=== PATIENT | female | born 2000 ===

== ENCOUNTER 2024-08-14 16:16 | Outpatient (REF) | payer MEDICAID, SELFPAY ==
[2024-08-14 18:22] LABS: Cholesterol 185 mg/dL (<200); HDL Cholesterol 35 mg/dL (>40); LDL Cholesterol Calculated 88 mg/dL (<100); Triglycerides 311 mg/dL (<150)
[2024-08-14 18:37] LABS: TSH reflex Free T4 2.74 uIU/mL (0.32-4.0)
[2024-08-15 04:08] LABS: Syphilis Screen Nonreactive (Nonreactive)
[2024-08-15 04:32] LABS: HIV AB/AG Nonreactive (Nonreactive); HIV Num 1 0.05 S/CO (0.00-0.99)
[2024-08-15 09:16] LABS: CT PCR DETECTED (Not Detect.); NG PCR NOT DETECTED (Not Detect.)
[2024-08-18 18:23] LABS: Testosterone, Total 40 ng/dL (2-45)
== END 2024-08-14 16:17 | disposition home or self-care (01) ==
LOC: HO.HHCL 16:16
PROVIDERS: Visit Provider Family Medicine
DX: N93.9 Abnormal uterine and vaginal bleeding, unspecified (principal); A64 Unspecified sexually transmitted disease; R10.2 Pelvic and perineal pain; Z87.42 Personal history of other diseases of the female genital tract; E78.5 Hyperlipidemia, unspecified
CPT/HCPCS: 36415; 80061; 84403; 84443; 86780; 87389; 87491; 87591

== ENCOUNTER 2024-08-26 15:22 | Outpatient (REF) | payer MEDICAID, OTHER, SELFPAY ==
--- NOTE | ~2024-08-26 | US_ITS ---
EXAMINATION: US PELVIS CLINICAL INFORMATION: Abnormal bleeding and pelvic pain COMPARISON: None available. TECHNIQUE: Ultrasound of the pelvis is performed using both transabdominal and transvaginal transducers along with Doppler. Transvaginal imaging is performed due to inadequate visualization transabdominally. FINDINGS: Uterus: The uterus is retroverted, retroflexed and measures 7.2 x 3.9 x 4.3 cm. It has an arcuate appearance. The double wall endometrial thickness is 13 mm. The endometrium is thickened and heterogeneous The uterus is smooth in contour and has normal myometrial echogenicity. No visible fibroid. There are small nabothian cysts seen in the cervix. Adnexa: Both ovaries are visualized. There is normal color flow to the adnexa. There is no ovarian torsion. There is no pelvic ascites or fluid collection. Right ovary measures 3.5 x 1.4 x 1.9 cm. Volume 4.9 mL. Small echogenic calcifications are visualized. Left ovary measures 2.9 x 1.2 x 1.8 cm cm. Volume 3.3 mL. There is anechoic tubular structure seen adjacent to right ovary suspicious for hydrosalpinx. . There is a small amount of free fluid in the cul-de-sac. US/US pelvic and transvaginal IMPRESSION: Suspect small right hydrosalpinx adjacent to right ovary. Heterogeneous and thickened endometrium but no focal lesion. Uterus is otherwise unremarkable. Small nabothian cysts in the cervix. Ovaries are grossly unremarkable. Minimal free fluid in the cul-de-sac. Electronically signed by: Brian Allen MD 08/26/2024 04:58 PM [facility]
--- OUTSIDE RECORDS SUMMARY | 2024-08-26 16:21 | XMS_ITS | Encounter Summary ---
Author Organization [employer] [facility] Address [address] [place] [address] 7 [place] [address] Care Team Providers Care Fruit Sorter Name Role Phone Mare Mclaughlin MD Primary Care Provider +1- [phone] Encounter Details Date Type Department Care Team (Late st Contact Info) Description 08/15/2024 Orders Only [facility] MED[facility] [address] [place] [address] [phone] Mare Mclaughlin MD [address] [place] [address] [phone] Positive Chlamydia PCR (Primary Dx) Social History Tobacco Use Types Packs/Day Years Used Date Smoking Tobacco: Never Passive Smoke Exposure: Never Smokeless Tobacco: Never Comments Unknown Sex and Gender Information Value Date Recorded Sex Assigned at Female 02/12/2024 6:41 PM EDT Legal Sex Female 2:38 PM EST Gender Identity Female 02/12/2024 6:41 PM EDT Sexual Orientation Straight 02/12/2024 6: 54 PM EDT documented as of this encounter Plan of Treatment Upcoming Encounters Date Type Department Care Team (Late st Contact Info) Description 10/03/2024 9:30 AM EST Procedure Visit [facility] [address] [place] [phone] Mare Mclaughlin MD [address] [place] [address] [phone] documented as of this encounter Visit Diagnoses Diagnosis Positive Chlamydia PCR- Primary documented in this encounter Care Teams Fruit Sorter Relationship Specialty Start Date End Date Mare Mclaughlin MD [address] [place] [address] [phone] PCP - General Family Medicine 08/14/24 documented as of this encounter
--- OUTSIDE RECORDS SUMMARY | 2024-08-26 16:21 | XMS_ITS | Encounter Summary ---
Author Organization [employer] [facility] Address [address] [place] [address] 7 [place] [address] Care Team Providers Care Motion Picture Director Name Role Phone Mare Mclaughlin MD Primary Care Provider [phone]- [phone] Encounter Details Date Type Department Care Team (Latest Contact Info) Description 08/14/2024 Travel Social History Tobacco Use Types Packs/Day Years [...] Description 10/03/2024 9:30 AM EST Procedure Visit [facility]INE [address] [place] [address] Mare Mclaughlin MD [address] [place] [address] documented as of this encounter Visit Diagnoses Not on filedocumented in this encounter Care Teams Motion Picture Director Relationship Specialty Start Date End Date Mare Mclaughlin MD [address] [place], [place] [phone] PCP - General Family Medicine 08/14/24 documented as of this encounter
--- OUTSIDE RECORDS SUMMARY | 2024-08-26 16:21 | XMS_ITS | Encounter Summary ---
Author Organization [employer] [facility] Address [address] [place] [address] [address] [place] [address] Care Team Providers Care Lens Examiner Name Role Phone Mare Mclaughlin MD Primary Care Provider [phone]- [phone] Reason for Referral * Imaging (Routine) - Authorized Specialty Diagnoses / Procedures Referred By Contac t Referred To Contact Radiology Diagnoses Abnormal uterine bleeding Procedures Us Pelvis complete Mare Mclaughlin MD [address] [place] [phone] Phone: tel: fax: [address] Phone: tel: fax: Referral ID Status Reason Start Date Expiration Date V isits Requested Visits Authorized [id number] Authorized 08/14/2024 08/14/2025 1 1 * Imaging (Routine) - Authorized Specialty Diagnoses / Procedures Referred By Contac t Referred To Contact Radiology Diagnoses Abnormal uterine bleeding Procedures US Pelvis Transvaginal Mare Mclaughlin MD [address] [place] [address] Phone: tel: fax: [address] Phone: tel: fax: Referral ID Status Reason Start Date Expiration Date V isits Requested Visits Authorized [id number] Authorized 08/14/2024 08/14/2025 1 1 Reason for Visit * Reason Comments Vaginal Bleeding Encounter Details Date Type Department Care Team (Late st Contact Info) Description 08/14/2024 4:00 PM EST Office Visit [facility] [address] [place], [place] [phone] Mare Mclaughlin MD [address] [place], [place] [phone] Abnormal uterine bleeding (Primary Dx); Pelvic pain; Hx of ovarian cyst; STI (sexually transmitted infection); Dyslipidemia; Class 1 obesity due to excess calories with serious comorbidity and body mass index (BMI) of 30.0 to 30.9 in adult; Dietary counseling; Exercise counseling Social History Tobacco Use Types Packs/Day Years Used Date Smoking Tobacco: Never Passive Smoke Exposure: Never Smokeless Tobacco: Never Comments Unknown Sex and Gender Information Value Date Recorded Sex Assigned at Female 02/12/2024 6:41 PM EDT Legal Sex Female 2:38 PM EST Gender Identity Female 02/12/2024 6:41 PM EDT Sexual Orientation Straight 02/12/2024 6: 54 PM EDT documented as of this encounter Last Filed Vital Signs Vital Sign Reading Time Taken Comments Blood Pressure 118/67 08/14/2024 3:44 PM EST Pulse 80 08/14/2024 3:44 PM EST Temperature 36.2 ??C (97.2 ??F) 08/14/2024 3:44 PM ES T Respiratory Rate 16 08/14/2024 3:44 PM EST Oxygen Saturation 98% 08/14/2024 3:44 PM EST Inhaled Oxygen Concentration - - Weight 78 kg (172 lb) 08/14/2024 3:44 PM EST Height - - Body Mass Index 33.59 02/12/2024 7:14 PM EDT documented in this encounter Progress Notes * Kathryn Escobar - 08/14/2024 4:00 PM EST Subjective Patient ID: Hannah Xi Marian is a 23 y.o. female who presents to walk in clinic for Vaginal Bleeding. Pt reports she usually has regular menstrual cycles, but missed her cycle in May and June.She notes she started having vaginal bleeding on July 30 and has not stopped bleeding since. Ptreports having tried getting previously but was unsuccessful. She says she was told her uterus is too small and that she has cysts. No hx of irregular periods. Pt is . Pt reports pelvic/suprapubic tenderness. Review of Systems Constitutional: Negative for fever and unexpected weight change. Respiratory: Negative for shortness of breath. Cardiovascular: Negative for chest pain. Gastrointestinal: Negative for abdominal pain. Genitourinary: Positive for pelvic pain and vaginal bleeding. Negative for difficulty urinating. Objective Visit Vitals BP 118/67 (BP Location: Left arm, Patient Position: Sitting, BP Cuff Size: Adult) Pulse 80 Temp 97.2 ??F (36.2 ??C) (Temporal) Resp 16 Body mass index is 33.59 kg/m??. Physical Exam Constitutional: Appearance: Normal appearance. Cardiovascular: Rate and Rhythm: Normal rate. Pulmonary: Effort: Pulmonary effort is normal. Abdominal: General: Abdomen is flat. Palpations: There is no mass. Tenderness: There is abdominal tenderness in the suprapubic area. Musculoskeletal: Cervical back: Normal range of motion. Neurological: General: No focal deficit present. Mental Status: She is alert. Psychiatric: Behavior: Behavior normal. Problem List Items Addressed This Visit Abnormal uterine bleeding - Primary No hx of irregular menstrual bleeding. No menstrual cycle x2memgco. Vaginal bleeding x13 days. Currently not bleeding. Likely abnormal uterine bleeding versus intrauterine abnormality versus PCOS. Ptreports having tried getting previously but was unsuccessful. She says she was told her uterus is too small and that she has cysts. No hx of irregular periods. Pt is . -ordered transvaginal and pelvic US, TSH, testosterone and STI testing -ER precautions discussed. -Seek medical attention for worsening symptoms. Relevant Orders POCT Hemoglobin (Completed) POCT , urine manually resulted (Completed) US Pelvis Transvaginal Us Pelvis complete TSH W/Reflex to FT4 Testosterone, Total, males (Adult), IA Chlamydia/N. Gonorrhoeae RNA, TMA, Urogenitial Pelvic pain No hx of irregular menstrual bleeding. No menstrual cycle p2xomgim. Vaginal bleeding x13 days. Currently not bleeding. Suprapubic pain on exam, reports pelvic pain. Likely abnormal uterine bleeding versus intrauterine abnormality versus PCOS. Pt reports having tried getting previously but was unsuccessful. She says she was told her uterus is too small and that she has cysts. No hx of irregular periods. Pt is . -ordered transvaginal and pelvic US, TSH, testosterone and STI testing -ER precautions discussed. -Seek medical attention for worsening symptoms. Relevant Orders TSH W/Reflex to FT4 Testosterone, Total, males (Adult), IA Chlamydia/N. Gonorrhoeae RNA, TMA, Urogenitial Hx of ovarian cyst Relevant Orders TSH W/Reflex to FT4 Testosterone, Total, males (Adult), IA Chlamydia/N. Gonorrhoeae RNA, TMA, Urogenitial Dyslipidemia Relevant Orders Lipid Panel, Standard Other Visit Diagnoses STI (sexually transmitted infection) Relevant Orders HIV-1/2 Antigen and Antibodies, Fourth Generation, with Reflexes Syphilis Screen Class 1 obesity due to excess calories with serious comorbidity and body mass index (BMI) of 30.0 to 30.9 in adult Dietary counseling Exercise counseling -No evidence of acute disease process. Suspect abnormal uterine bleeding versus intrauterine abnormality versus PCOS. Symptoms mild. POCT preg negative and HGB WNL. -Ordered labs, STI testing and intravaginal/pelvic US. -ER precautions discussed. -Seek medical attention for worsening symptoms. I, Kathryn Escobar, am serving as a scribe to document services personally performed by Dr. Butler, based on the patient's response to questions by provider and providers statements to me. documented in this encounter Miscellaneous Notes * Assessment & Plan Note - Kathryn Escobar - 08/14/2024 3:59 PM ESTAssociated Problem(s): Pelvic pain No hx of irregular menstrual bleeding. No menstrual cycle [id number]. Vaginal bleeding x13 days. Currently not bleeding. Suprapubic pain on exam, reports pelvic pain. Likely abnormal uterine bleeding versus intrauterine abnormality versus PCOS. Pt reports having tried getting previously but was unsuccessful. She says she was told her uterus is too small and that she has cysts. No hx of irregular periods. Pt is . -ordered transvaginal and pelvic US, TSH, testosterone and STI testing -ER precautions discussed. -Seek medical attention for worsening symptoms. * Assessment & Plan Note - Kathryn Escobar - 08/14/2024 3:58 PM ESTAssociated Problem(s): Abnormal uterine bleeding No hx of irregular menstrual bleeding. No menstrual cycle [id number]. Vaginal bleeding x13 days. Currently not bleeding. Likely abnormal uterine bleeding versus intrauterine abnormality versus PCOS. Ptreports having tried getting previously but was unsuccessful. She says she was told her uterus is too small and that she has cysts. No hx of irregular periods. Pt is . -ordered transvaginal and pelvic US, TSH, testosterone and STI testing -ER precautions discussed. -Seek medical attention for worsening symptoms. documented in this encounter Plan of Treatment Upcoming Encounters Date Type Department Care Team (Late st Contact Info) Description 10/03/2024 9:30 AM EST Procedure Visit [facility] [address] [place] [address] Mare Mclaughlin MD [address] [place] [address] Scheduled Orders Name Type Priority Associated Diagnoses Orde r Schedule US Pelvis Transvaginal Imaging Routine Abnormal uterine bleeding Expected: 08/14/2024, Expires: 08/14/2025 Us Pelvis complete Imaging Routine Abnormal uterine bleeding Expected: 08/14/2024, Expires: 08/14/2025 documented as of this encounter Procedures Procedure Name Priority Date/Time Associated Diagnosis Comments SYPHILIS SCREEN Routine 08/14/2024 4:21 PM EST STI (sexually transmitted infection) TSH W/REFLEX TO FT4 Routine 08/14/2024 4 :21 PM EST Abnormal uterine bleeding Pelvic pain Hx of ovarian cyst HIV 1/2 ANTIGEN/ANTIBODY, FOURTH GENERATION W/RFL Routine 08/14/2024 4:21 PM EST STI (sexually transmitted infection) TESTOSTERONE, TOTAL, MALES (ADULT), IA Routine 08/14/2024 4:21 PM EST Abnormal uterine bleeding Pelvic pain Hx of ovarian cyst LIPID PANEL, STANDARD Routine 08/14/2024 4:21 PM EST Dyslipidemia POCT , URINE Routine 08/14/2024 4:02 PM EST Abnormal uterine bleeding POCT HEMOGLOBIN Routine 08/14/2024 3:58 PM EST Abnormal uterine bleeding CHLAMYDIA/N. GONORRHOEAE RNA, TMA, UROGENITAL Routine 08/14/2024 12:00 AM EST Abnormal uterine bleeding Pelvic pain Hx of ovarian cyst documented in this encounter Results * (ABNORMAL) Lipid Panel, Standard (08/14/2024 4:21 PM EST) Triglycerides 311(H) <150 mg/dL [facility] Comment:Desirable Triglyceri de: less than 150 mg/dLBorderline High Triglyceride 150-199 mg/dLHigh Triglyceride: 200-499 mg/dLVery High Triglyceride: greater than or equal to 5OO mg/dL Cholesterol 185 <200 mg/dL [facility] Comment:Desirable Cholestero l: less than 200 mg/dLBorderline High Cholesterol: 200-239 mg/dLHigh Cholesterol: greater than 239 mg/dL LDL Cholesterol Calculated 88 <100 mg/dL [facility] Comment:Desirable LDL: less than 100 mg/dLNear Optimal/Above Optimal LDL: 110- 129 mg/dLBorderline High LDL: 130-159 mg/dLHigh LDL: 160-189 mg/dLVery High LDL: greater than or equal to 190 mg/dL HDL Cholesterol 35(L) >40 mg/dL [facility] Comment:Desirable HDL: great er than 40 mg/dL Note: This HDL assay may give artificially low results in patients with liver disease. Blood Venous blood specimen / Unknown 08/14/2024 4:21 PM EST 08/14/2024 5:38 PM EST us Mare Mclaughlin MD LAB BLOOD ORDERABLES Final Result Performing Organization Address City/[facility]/ZIP Co de Phone Number [facility] [address] [place] [phone] * Syphilis Screen (08/14/2024 4:21 PM EST) Syphilis Screen Nonreactive Nonreactive [facility] Blood Venous blood specimen / Unknown 08/14/2024 4:21 PM EST 08/14/2024 5:38 PM EST Mare Mclaughlin MD LAB BLOOD ORDERABLES Final Result Performing Organization Address [facility] de Phone Number [facility] [address] [place] [phone] * HIV-1/2 Antigen and Antibodies, Fourth Generation, with Reflexes (08/14/2024 4:21 PM EST) [facility] HIV AB/AG Nonreactive Nonreactive [facility] Comment:HIV-1 p24 Ag and/or HIV-1/HIV-2 Ab not detected.A test result that is nonreactive does not exclude thepossibility of exposure to or infection with HIV-1 and/orHIV-2. Nonreactive results in this assay for individualswith prior exposure to HIV-1 and/or HIV-2 may be due toantigen and antibody levels that are below the limit ofdetection of this assay.The [facility] HIV Ag/Ab Combo assay result andsupplemental assay results should be interpreted inconjunction with the patient's clinical presentation,history and other laboratory results. If the results areinconsistent with clinical evidence, additional testing issuggested to confirm the result. Blood Venous blood specimen / Unknown 08/14/2024 4:21 PM EST 08/14/2024 5:38 PM EST Mare Mclaughlin MD LAB BLOOD ORDERABLES Final Result Performing Organization Address [facility] Co de Phone Number [facility] [address] [place] [phone] * Testosterone, Total, males (Adult), IA (08/14/2024 4:21 PM EST) Pathologist [facility] Testosterone, Total 40 2 - 45 ng/dL [facility] Comment:For additional infor anna, please refer [email or web address](This link is being provided for informational/educational purposes only.)This test was developed and its analytical performancecharacteristics have been determined by [employer] [place], [place]. It hasnot been cleared or approved by the U.S. Food and DrugAdministration. This assay has been validated pursuantto the CLIA regulations and is used for clinicalpurposes.THIS TEST WAS PERFORMED AT:[employer]/[facility] [place] [phone] THOMPSON MD,PHD Blood Venous blood specimen / Unknown 08/14/2024 4:21 PM EST 08/14/2024 5:38 PM EST Mare Mclaughlin MD LAB BLOOD ORDERABLES Final Result [facility] [address] [place] [phone] * TSH W/Reflex to FT4 (08/14/2024 4:21 PM EST) Pathologist [facility] TSH reflex Free T4 2.74 0.32 - 4.0 uIU/mL [facility] Blood Venous blood specimen / Unknown 08/14/2024 4:21 PM EST 08/14/2024 5:38 PM EST Mare Mclaughlin MD LAB BLOOD ORDERABLES Final Result [facility] [address] [place] [phone] * POCT , urine manually resulted (08/14/2024 4:02 PM EST) Pathologist [facility] Preg Test, Ur Negative Negative, Indeterminate, None Detected, Invalid, Specimen unsatisfactory for evaluation, Weakly Positive Urine 08/14/2024 4:02 PM EST Mare Mclaughlin MD POINT OF CARE TEST ENTER/E DIT ORDERABLES Final Result * POCT Hemoglobin (08/14/2024 3:58 PM EST) [facility] Hemoglobin 12.1 12.0 - 15.0 Blood 08/14/2024 3:58 PM EST Mare Mclaughlin MD POINT OF CARE TEST ENTER/E DIT ORDERABLES Final Result * (ABNORMAL) Chlamydia/N. Gonorrhoeae RNA, TMA, Urogenitial (08/14/2024 12:00 AM EST) [facility] CT PCR DETECTED(A) Not Detect. [facility] Comment:Detected results may be observed after successful antibiotictreatment due to target nucleic acids from residualnon-viable chlamydia. As with many diagnostic tests, resultsfrom the Xpert CT/NG assay should be interpreted inconjunction with other laboratory and clinical dataavailable to the clinician.Xpert CT/NG performance has not been evaluated in patientsless than 14 years of age. The assay should not be used forthe evaluationof suspected sexual abuse or for other medico- legalindications. Additional testing is recommended inany circumstance when false positive or false negativeresults could lead to adverse medical, social orpsychological consequences.These results must be reported by the ordering clinician orclinical facility to the [facility]as required by state law. NG PCR NOT DETECTED Not Detect. [facility] Comment:A not detected test result does not exclude the possibilityof infection because test results can be affected byimproper specimen collection, concurrent antibiotic therapy,or the number of organisms in the specimen which may bebelow the sensitivity of the test. As with many diagnostictests, results from the Xpert CT/NG assay should beinterpreted in conjunction with other laboratory andclinical data available to the clinician.Xpert CT/NG performance has not been evaluated in patientsless than 14 years of age. The assay should not be used forthe evaluationof suspected sexual abuse or for other medico-legalindications. Additional testing is recommended in anycircumstance when false positive or false negative resultscould lead to adverse medical, social or psychologicalconsequences. Urine, Random 08/14/2024 08/14/2024 Narrative [facility] - 08/15/2024 9:16 AM EST Urine us Mare Mclaughlin MD LAB MICROBIOLOGY - GENERAL ORDERABLES Final Result [facility] [address] [place] [phone] documented in this encounter Visit Diagnoses Diagnosis Abnormal uterine bleeding- Primary Unspecified disorder of menstruation and other abnormal bleeding from female genital tract Pelvic pain Hx of ovarian cyst STI (sexually transmitted infection) Unspecified venereal disease Dyslipidemia Other and unspecified hyperlipidemia Class 1 obesity due to excess calories with serious comorbidity and body mass index (BMI) of 30.0 to 30.9 in adult Dietary counseling Dietary surveillance and counseling Exercise counseling documented in this encounter Care Teams Lens Examiner Relationship Specialty Start Date End Date Mare Mclaughlin MD [address] [place] [phone] PCP - General Family Medicine 08/14/24 documented as of this encounter
--- OUTSIDE RECORDS SUMMARY | 2024-08-26 16:21 | XMS_ITS | Clinical Summary ---
Author Organization [employer] Address [address] [facility] [address] [place] [address] Care Team Providers Care Lapper Name Role Phone Mare Mclaughlin MD Primary Care Provider [phone]- [phone] Allergies No known active allergies Medications acetaminophen (Tylenol Extra Strength) 500 MG tablet 1-2 tablets PO Q8h prn fever/pain /headache/ 90 tablet 4 Active ibuprofen 400 MG tablet 1-2 tablets PO Q8h prn fever/pain /headache/ 90 tablet 4 Active sodium chloride ([place] Nasal [place]) 0.65 % nasal spray Administer 1 spray into each nostril if needed for congestion. 30 mL 4 02/12/20 25 Active fluticasone (Flonase) 50 MCG/ACT nasal spray Administer 1 spray into each nostril Once per day. 16 g 1 4 Active doxycycline (Vibra-Tabs) 100 MG tabletIndicatio ns:Positive Chlamydia PCR Take 1 tablet (100 mg) by mouth 2 times daily for 7 days. Take with a full glass of water and do not lie down for at least 30 minutes after. 14 tablet 5 08/22/19 25 Active Problems Problem Noted Date Diagnosed Date Abnormal uterine bleeding 08/14/2024 Overview (08/14/2024): No hx of irregular menstrual bleeding. No menstrual cycle [id number]. Vaginal bleeding x13 days. Currently not bleeding. Pt reports having tried getting previously but was unsuccessful. She says she was told her uterus is too small and that she has cysts. No hx of irregular periods. Pt is . -ordered transvaginal and pelvic US, TSH, testosterone and STI testing 1/16/25 Assessment & Plan (08/14/2024 3:59 PM EST): No hx of irregular menstrual bleeding. No menstrual cycle [id number]. Vaginal bleeding x13 days. Currently not bleeding. [...] discussed. -Seek medical attention for worsening symptoms. Pelvic pain 08/14/2024 Assessment & Plan (08/14/2024 3:59 PM EST): No hx of irregular menstrual bleeding. No menstrual cycle [id number]. Vaginal bleeding x13 days. Currently not bleeding. [...] discussed. -Seek medical attention for worsening symptoms. Hx of ovarian cyst 08/14/2024 Other specified health status 08/14/2024 Overview (08/14/2024): -next comprehensive annual evaluation due after -eye care facilitated by -dental home is -danica care proxy Dyslipidemia 08/14/2024 Overview (08/14/2024): No results found for: CHOL , TRIG , HDL , LDLCHOLCAL , LDL -continue lifestyle modification COVID-19 02/12/2024 Assessment & Plan (02/12/2024 7:47 PM EDT): Rx Paxlovid x 5 days mainly due to not updated covid [place] and low BP Isolation until Sun 02/16 and she/ will be out of work until then. Can be out of isolation, wearing a mask from 02/17 until 02/22, if sxs are resolved without other meds for at least 24h. Counseled to let close contacts within the past week, know about dx so they can be tested if needed. Rest (sleep at least 8 hours a night). Wash hands frequently Hydrate with plenty of water, chicken broth, Gatorade, crystal lite. Use saline nose drops, Fluticasone nasal spray 1x/d x 2-3w. Take Acetaminophen 500-1000 mg q8h or Ibuprofen 400-800 mg Q8h Prn fever or discomfort Gargle with salt water and use throat sprays/lozenges prn Use heated, humidified air or take hot showers. If you have a fever, stay home and away from others (self isolation) until fever-free for 72 hours (temperature should be less than 100??F without medication). Will fu in 2d over the phone, advised to go to ED if SOB, OCASIO or weakness gets worse. Advised to get contacts tested if they develop sxs. No need for sick leave as she's unemployed now. Encounters Date Type Department Care Team Description 08/15/2024 Telephone [facility] [address] [place] [phone] Akila Issa, RN Results 08/15/2024 Orders Only [facility] [address] [place] [phone] Mare Mclaughlin MD Positive Chlamydia PCR (Primary Dx) 08/14/2024 4:00 PM EST Office Visit [facility] [address] [place] [address] [phone] Mare Mclaughlin MD Abnormal uterine bleeding (Primary Dx); Pelvic pain; Hx of ovarian cyst; STI (sexually transmitted infection); Dyslipidemia; Class 1 obesity due to excess calories with serious comorbidity and body mass index (BMI) of 30.0 to 30.9 in adult; Dietary counseling; Exercise counseling 08/14/2024 Travel from Last 3 Months Family History Medical History Relation Name Comments Diabetes Mother Relation Name Status Comments Mother Social History Tobacco Use Types Packs/Day Years Used Date Smoking Tobacco: Never Passive Smoke Exposure: Never Smokeless Tobacco: Never Tobacco Cessation:Counseling Given: Not Answered Comments Unknown Sex and Gender Information Value Date Recorded Sex Assigned at Female 02/12/2024 6:41 PM EDT Legal Sex Female 2:38 PM EST Gender Identity Female 02/12/2024 6:41 PM EDT Sexual Orientation Straight 02/12/2024 6: 54 PM EDT Last Filed Vital Signs Vital Sign Reading Time Taken Comments Blood Pressure 118/67 08/14/2024 3:44 PM EST Pulse 80 08/14/2024 3:44 PM EST Temperature 36.2 ??C (97.2 ??F) 08/14/2024 3:44 PM ES T Respiratory Rate 16 08/14/2024 3:44 PM EST Oxygen Saturation 98% 08/14/2024 3:44 PM EST Inhaled Oxygen Concentration - - Weight 78 kg (172 lb) 08/14/2024 3:44 PM EST Height 152.4 cm (5') 02/12/2024 7:14 PM EDT Body Mass Index 33.59 02/12/2024 7:14 PM EDT Plan of Treatment Upcoming Encounters Date Type Department Care Team (Late st Contact Info) Description 10/03/2024 9:30 AM EST Procedure Visit [facility] [address] [place], [place] [phone] Mare Mclaughlin MD [address] [place] [address] Health Maintenance Due Date Last Done Comments Depression Screening 1998 SDOH Screening 1998 Alcohol/Substance Use Screening 2010 Family Planning (PISQ) 2013 HPV Vaccines (1 - 3-dose series) 2013 Hepatitis C Screening 2016 DTaP/Tdap/Td Vaccines (1 - Tdap) 2017 Hepatitis B Vaccines (1 of 3 - 19+ 3-dose series) 2017 Pap Smear 11/22/2019 COVID-19 Vaccine (1 - 2023-2 5 season) 2024 Influenza Vaccine (#1) 2024 Tobacco Screening 02/11/2025 02/12/2024 Lipid Panel 08/14/2029 08/14/2024 Zoster Vaccines (1 of 2) 2048 RSV Patients and Pa tients Aged 60 years or older (1 - 1-dose 75+ series) 2073 HIV Screening Completed 08/14/2024 HIB Vaccines Aged Out No longer eligi ble based on patient's age to complete this topic Hepatitis A Vaccines Aged Out No long er eligible based on patient's age to complete this topic IPV Vaccines Aged Out No longer eligi ble based on patient's age to complete this topic Meningococcal Vaccine Aged Out No ruy keny eligible based on patient's age to complete this topic Pneumococcal Vaccine: Pediat rics (0 to 5 Years) and At-Risk Patients (6 to 64 Years) Aged Out No longer eligi ble based on patient's age to complete this topic RSV under 20 months Aged Out No longe r eligible based on patient's age to complete this topic Rotavirus Vaccines Aged Out No longer eligible based on patient's age to complete this topic Procedures Procedure Name Priority Date/Time Associated Diagnosis Comments LIPID PANEL, STANDARD Routine 08/14/2024 4:21 PM EST Dyslipidemia SYPHILIS SCREEN Routine 08/14/2024 4:21 PM EST STI (sexually transmitted infection) HIV 1/2 ANTIGEN/ANTIBODY, FOURTH GENERATION W/RFL Routine 08/14/2024 4:21 PM EST STI (sexually transmitted infection) TESTOSTERONE, TOTAL, MALES (ADULT), IA Routine 08/14/2024 4:21 PM EST Abnormal uterine bleeding Pelvic pain Hx of ovarian cyst TSH W/REFLEX TO FT4 Routine 08/14/2024 4 :21 PM EST Abnormal uterine bleeding Pelvic pain Hx of ovarian cyst POCT , URINE Routine 08/14/2024 4:02 PM EST Abnormal uterine bleeding POCT HEMOGLOBIN Routine 08/14/2024 3:58 PM EST Abnormal uterine bleeding CHLAMYDIA/N. GONORRHOEAE RNA, TMA, UROGENITAL Routine 08/14/2024 12:00 AM EST Abnormal uterine bleeding Pelvic pain Hx of ovarian cyst from Last 3 Months Results * Syphilis Screen (08/14/2024 4:21 PM EST) Syphilis Screen Nonreactive Nonreactive [facility] Blood Venous blood specimen / Unknown 08/14/2024 4:21 PM EST 08/14/2024 5:38 PM EST Mare Mclaughlin MD LAB BLOOD ORDERABLES Final Result Performing Organization Address [facility] Co de Phone Number [facility] [address] [place] [address] [phone] * TSH W/Reflex to FT4 (08/14/2024 4:21 PM EST) TSH reflex Free T4 2.74 0.32 - 4.0 uIU/mL [facility] Blood Venous blood specimen / Unknown 08/14/2024 4:21 PM EST 08/14/2024 5:38 PM EST Mare Mclaughlin MD LAB BLOOD ORDERABLES Final Result Performing Organization Address [facility] de Phone Number [facility] [address] [place] [phone] * HIV-1/2 Antigen and Antibodies, Fourth Generation, with Reflexes (08/14/2024 4:21 PM EST) HIV AB/AG Nonreactive Nonreactive [facility] Comment:HIV-1 p24 Ag and/or HIV-1/HIV-2 Ab not detected.A test result that is nonreactive does not exclude thepossibility of exposure to or infection with HIV-1 and/orHIV-2. Nonreactive results in this assay for individualswith prior exposure to HIV-1 and/or HIV-2 may be due toantigen and antibody levels that are below the limit ofdetection of this assay.The [employer] HIV Ag/Ab Combo assay result andsupplemental assay results should be interpreted inconjunction with the patient's clinical presentation,history and other laboratory results. If the results areinconsistent with clinical evidence, additional testing issuggested to confirm the result. Blood Venous blood specimen / Unknown 08/14/2024 4:21 PM EST 08/14/2024 5:38 PM EST Mare Mclaughlin MD LAB BLOOD ORDERABLES Final Result Performing Organization Address [facility] Co de Phone Number [facility] [address] [place] [phone] * Testosterone, Total, males (Adult), IA (08/14/2024 4:21 PM EST) Testosterone, Total 40 2 - 45 ng/dL [facility] Comment:For additional infor mation, please refer tohttp://education.Apalya/faq/[email or web address](This link is being provided for informational/educational purposes only.)This test was developed and its analytical performancecharacteristics have been determined by [employer] [place], [place]. It hasnot been cleared or approved by the U.S. Food and DrugAdministration. This assay has been validated pursuantto the CLIA regulations and is used for clinicalpurposes.THIS TEST WAS PERFORMED AT:[employer] [place] [phone] THOMPSON MD,PHD Blood Venous blood specimen / Unknown 08/14/2024 4:21 PM EST 08/14/2024 5:38 PM EST Mare Mclaughlin MD LAB BLOOD ORDERABLES Final Result Performing Organization Address [facility] Co de Phone Number [facility] [address] [place] [phone] * (ABNORMAL) Lipid Panel, Standard (08/14/2024 4:21 PM EST) Triglycerides 311(H) <150 mg/dL [facility] Comment:Desirable Triglyceri de: less than 150 mg/dLBorderline High Triglyceride 150-199 mg/dLHigh Triglyceride: 200-499 mg/dLVery High Triglyceride: greater than or equal to 5OO mg/dL Cholesterol 185 <200 mg/dL [facility] Comment:Desirable Cholestero l: less than 200 mg/dLBorderline High Cholesterol: 200-239 mg/dLHigh Cholesterol: greater than 239 mg/dL LDL Cholesterol Calculated 88 <100 mg/dL [facility] Comment:Desirable LDL: less than 100 mg/dLNear Optimal/Above Optimal LDL: 110- 129 mg/dLBorderline High LDL: 130-159 mg/dLHigh LDL: 160-189 mg/dLVery High LDL: greater than or equal to 190 mg/dL HDL Cholesterol 35(L) >40 mg/dL [facility] Comment:Desirable HDL: great er than 40 mg/dL Note: This HDL assay may give artificially low results in patients with liver disease. Blood Venous blood specimen / Unknown 08/14/2024 4:21 PM EST 08/14/2024 5:38 PM EST us Mare Mclaughlin MD LAB BLOOD ORDERABLES Final Result [facility] [address] [place] [phone] * POCT , urine manually resulted (08/14/2024 4:02 PM EST) Pathologist [facility] Preg Test, Ur Negative Negative, Indeterminate, None Detected, Invalid, Specimen unsatisfactory for evaluation, Weakly Positive Urine 08/14/2024 4:02 PM EST us Mare Mclaughlin MD POINT OF CARE TEST ENTER/E DIT ORDERABLES Final Result * POCT Hemoglobin (08/14/2024 3:58 PM EST) Hemoglobin 12.1 12.0 - 15.0 Blood 08/14/2024 3:58 PM EST us Mare Mclaughlin MD POINT OF CARE TEST ENTER/E DIT ORDERABLES Final Result * (ABNORMAL) Chlamydia/N. Gonorrhoeae RNA, TMA, Urogenitial (08/14/2024 12:00 AM EST) CT PCR DETECTED(A) Not Detect. [facility] Comment:Detected results may be observed after [...] the ordering clinician orclinical facility to the [facility] required by state law. NG PCR NOT DETECTED Not Detect. [facility] Comment:A not detected test result does [...] Urine, Random 08/14/2024 08/14/2024 Narrative [facility] - 08/15/2024 9:16 AM EST Urine us Mare Mclaughlin MD LAB MICROBIOLOGY - GENERAL ORDERABLES Final Result [facility] [address] [place] [phone] [phone] from Last 3 Months [facility] [employer] Care Teams Lapper Relationship Specialty Start Date End Date Arnoldo, MD Mare [address] [place] [phone] PCP - General Family Medicine 08/14/24
--- OUTSIDE RECORDS SUMMARY | 2024-08-26 16:21 | XMS_ITS | Encounter Summary ---
Author Organization [employer] Address [address] [facility] [address] [place] [address] Care Team Providers Care Supervisor Production Name Role Phone Mare Mclaughlin MD Primary Care Provider +1- [phone] Reason for Visit * Reason Onset Date Comments Results 08/15/2024 Encounter Details Date Type Department Care Team (Late st Contact Info) Description 08/15/2024 Telephone [facility] [address] [place] [address] Akila Issa RN Results Social History Tobacco Use Types Packs/Day Years Used Date Smoking Tobacco: Never Passive Smoke Exposure: Never Smokeless Tobacco: Never Comments Unknown Sex and Gender Information Value Date Recorded Sex Assigned at Female 02/12/2024 6:41 PM EDT Legal Sex Female 2:38 PM EST Gender Identity Female 02/12/2024 6:41 PM EDT Sexual Orientation Straight 02/12/2024 6: 54 PM EDT documented as of this encounter Miscellaneous Notes * Telephone Encounter - Akila Issa RN - 08/15/2024 10:07 AM EST Telephone call returned to patient in regards to below message. Advised Hannah know that her test for chlamydia came back positive. And that this is a common infection passed through sex that can be cured. Advised patient that people often have no symptoms. If she is having severe abdominal pain, fever, chills or heavy bleeding, she needs to be seen urgently. Advised her prescription has been sentto her pharmacy. Also advised that any partner(s) will need treatment and can come in for EPT. Advised her she should abstain from sex for at least 7 days after treatment. Also let her know should elsie-tested in 3months. Patient verbalized understanding and denied having any further questions or concerns at this time. Patient to follow up as needed. documented in this encounter Plan of Treatment Upcoming Encounters Date Type Department Care Team (Late st Contact Info) Description 10/03/2024 9:30 AM EST Procedure Visit [facility] [address] [place] [address] Mare Mclaughlin MD [address] [place], [place] [phone] documented as of this encounter Visit Diagnoses Not on filedocumented in this encounter Care Teams Supervisor Production Relationship Specialty Start Date End Date Mare Mclaughlin MD [address] [place] [phone] PCP - General Family Medicine 08/14/24 documented as of this encounter
== END 2024-08-26 15:23 | disposition home or self-care (01) ==
LOC: HO.US 15:22
PROVIDERS: PCP Family Medicine; Visit Provider Family Medicine
DX: N93.9 Abnormal uterine and vaginal bleeding, unspecified (principal)
CPT/HCPCS: 76830; 76856

== ENCOUNTER → 2024-08-26 15:25 | Outpatient (BNV) | payer SELFPAY | PROVIDERS: PCP Family Medicine; Visit Provider Radiology Diagnostic Radiology | DX: N93.9 Abnormal uterine and vaginal bleeding, unspecified (principal) | CPT/HCPCS: 76830; 76856 ==